=== PATIENT | female | born 1965 | race Caucasian/White ===

== ENCOUNTER 2018-09-13 07:54 | Day surgery (SDC) | payer OTHER ==
[2018-09-08 14:44] VITALS: BP 112/77
[~2018-09-13] VITALS: Ht 170.2 cm; Wt 90.8 kg
[~2018-09-13 07:54] MED LIST: CYCL5TAB PO; ROSU10TA PO
[2018-09-13] MEDS ORDERED: BUPIVACAINE/PF 0.25% ONE (08:26)
[2018-09-13] MEDS ORDERED: SILVER NITRATE STICK TP ONE (08:27)
[2018-09-13] MEDS ORDERED: MIDAZOLAM 1 MG/ML, 2ML ONE (08:27)
[2018-09-13] MEDS ORDERED: FENTANYL PF 250 MCG/5ML ONE (08:27)
[2018-09-13] MEDS ORDERED: EPINEPHRINE 1 MG/ML, 1ML ONE (08:27)
[2018-09-13] MEDS ORDERED: LACTATED RINGERS 1,000 ML IV SCH (08:27)
[2018-09-13] MEDS ORDERED: PROPOFOL 10 MG/ML, 20ML ONE (08:28)
[2018-09-13] MEDS ORDERED: ONDANSETRON 2MG/ML, 2ML ONE ×2 (08:29)
[2018-09-13] MEDS ORDERED: LIDOCAINE-MPF 2% ,5ML ONE (08:29)
[2018-09-13] MEDS ORDERED: DEXAMETHASONE 4 MG/ML, 1ML ONE ×2 (08:29)
[2018-09-13] MEDS ORDERED: CEFOTETAN 2 GM ONE (08:29)
[2018-09-13] MEDS ORDERED: ROCURONIUM 10MG/ML,5ML ONE (08:29)
[2018-09-13] MEDS ORDERED: SCOPOLAMINE PATCH, 1.5MG PATCH.TD72 TD ONE (08:30)
[2018-09-13] MEDS ORDERED: GLYCOPYRROLATE 0.2MG/1ML, 5ML ONE (08:51)
[2018-09-13] MEDS ORDERED: NEOSTIGMINE 1 MG/ML, 10ML ONE (08:51)
[2018-09-13] MEDS ORDERED: ONDANSETRON ODT 8 MG ONE (09:17)
[2018-09-13] MEDS ORDERED: KETOROLAC 30 MG/1 ML ONE (09:41)
[2018-09-13] MEDS ORDERED: OXYcodone 5 MG/5 ML ORAL.SOL UDC ONE (10:17)
[2018-09-13] MEDS ORDERED: ACETAMINOPHEN 650 MG/20.3 ML UDC ONE (10:17)
[2018-09-13] MEDS ORDERED: HYDROmorphone 1 MG/ML, 1ML ONE (10:27)
[2018-09-13] MEDS: HYDROmorphone 2 MG/ML, 1ML IVPush PRN ×2 (10:28→10:36)
[2018-09-13] MEDS ORDERED: hydrALAzine 20 MG/ML, 1ML IV PRN (10:30)
[2018-09-13] MEDS ORDERED: MEPERIDINE/PF 25MG/0.5ML IVPush PRN (10:30)
[2018-09-13] MEDS ORDERED: FENTANYL PF 100 MCG/2ML IV PRN (10:30)
[2018-09-13] MEDS ORDERED: OXYcodone 5 MG/5 ML ORAL.SOL UDC PO PRN (10:30)
[2018-09-13] MEDS ORDERED: ACETAMINOPHEN 325 MG TABLET PO PRN (10:30)
[2018-09-13] MEDS ORDERED: ALBUTEROL SULFATE 2.5 MG/3 ML NPPB PRN (10:30)
[2018-09-13] MEDS ORDERED: LORazepam 2 MG/ML, 1ML IVPush PRN (10:30)
[2018-09-13] MEDS ORDERED: HALOPERIDOL 5 MG/ML IV PRN (10:30)
[2018-09-13] MEDS ORDERED: PROMETHAZINE 25 MG/ML, 1ML IV PRN (10:30)
[2018-09-13] MEDS ORDERED: MEPERIDINE/PF 25MG/ML,1ML ONE (10:43)
[2018-09-13] MEDS ORDERED: ONDANSETRON 2MG/ML, 2ML IVPush PRN (14:00)
== END 2018-09-13 15:55 | disposition home or self-care (01) ==
LOC: OUT 07:54
PROVIDERS: ATTEND Obstetrics & Gynecology
DX: D27.1 Benign neoplasm of left ovary (principal); D28.2 Benign neoplasm of uterine tubes and ligaments; N93.9 Abnormal uterine and vaginal bleeding, unspecified; F41.9 Anxiety disorder, unspecified; Z98.890 Other specified postprocedural states
CPT/HCPCS: 58558; 58661; 88112; 88302; 88305; J0171; J1100; J1170; J1885; J2175; J2250; J2405; J2704; J2710; J3010; J3490; Q0162

== ENCOUNTER 2019-07-11 21:36 | Emergency (ER) | payer OTHER ==
[~2019-07-11] VITALS: Ht 170.2 cm; Wt 105.9 kg
[~2019-07-11 21:36] MED LIST changes: -ROSU10TA PO; +ROSU10TA2 PO
[2019-07-11 21:48] VITALS: BP 131/78
== END 2019-07-11 22:15 | disposition home or self-care (01) ==
LOC: ED 22:05
DX: T46.6X1A Poisoning by antihyperlipidemic and antiarteriosclerotic drugs, accidental (unintentional), initial encounter (principal); F17.200 Nicotine dependence, unspecified, uncomplicated; Z90.722 Acquired absence of ovaries, bilateral; Z90.79 Acquired absence of other genital organ(s); Y92.89 Other specified places as the place of occurrence of the external cause
CPT/HCPCS: 99281